=== PATIENT | female | born 1985 | race Caucasian/White ===

== ENCOUNTER → 2018-02-17 | Outpatient (CLI) | payer MEDICAID ==
--- NOTE | 2018-02-17 17:06 | US ---
EXAMINATION TYPE: US transvaginal DATE OF EXAM: 02/17/2018 COMPARISON: CLINICAL HISTORY: N92.0 MENORRHAGIA. Patient states having heavy periods with general cramping. No s urgeries. TECHNIQUE: Transvaginal (TV). Date of LMP: 02/10/2018, EXAM MEASUREMENTS: Uterus: 8.2 x 4.6 x 3.1 cm Endometrial Stripe: 0.2 cm Right Ovary: 4.0 x 2.5 x 1.8 cm Left Ovary: 4.0 x 2.0 x 2.0 cm 1. Uterus: Anteverted wnl 2. Endometrium: wnl 3. Right Ovary: Multiple follicles seen 4. Left Ovary: Multiple follicles seen 5. Bilateral Adnexa: wnl 6. Posterior cul-de-sac: no free fluid Cervix- wnl IMPRESSION: 1. Normal pelvic ultrasound.
== END | disposition home or self-care (01) ==
LOC: RADUSWWP 10:06
PROVIDERS: ATTEND Obstetrics & Gynecology
DX: N92.0 Excessive and frequent menstruation with regular cycle (principal)
CPT/HCPCS: 76830

== ENCOUNTER → 2018-02-27 | Outpatient (CLI) | payer MEDICAID ==
[2018-02-27 12:53] LABS: Basophils # (A) 0.1 k/uL (0-0.2); Basophils % (A) 1 %; Eosinophils # (A) 0.3 k/uL (0-0.7); Eosinophils % (A) 4 %; HCT 40.9 % (34.0-46.0); HGB 13.5 gm/dL (11.4-16.0); Lymphocytes # (A) 1.8 k/uL (1.0-4.8); Lymphocytes % (A) 22 %; MCH 28.8 pg (25.0-35.0); MCV 87.4 fL (80.0-100.0); Mean Platelet Volume 6.4; Monocytes # (A) 0.4 k/uL (0-1.0); Monocytes % (A) 4 %; Neutrophils # (A) 5.6 k/uL (1.3-7.7); Neutrophils % (A) 68 %; Platelet Count 248 k/uL (150-450); RBC 4.68 m/uL (3.80-5.40); RDW 12.6 % (11.5-15.5); WBC 8.3 k/uL (3.8-10.6)
== END | disposition home or self-care (01) ==
LOC: LABPAT 11:18
PROVIDERS: ATTEND Obstetrics & Gynecology
DX: Z01.812 Encounter for preprocedural laboratory examination (principal)
CPT/HCPCS: 36415; 85025

== ENCOUNTER 2018-03-07 05:53 | Day surgery (SDC) | payer MEDICAID ==
[2018-02-28 15:29] VITALS: BMI 21.9
--- NOTE | 2018-03-06 07:29 | P.HPOB ---
History of Present Illness H&P Date: 03/06/18 Chief Complaint: Menorrhagia This is patient is a pleasant 32 yr. old female with persistent, worsening menorrhagia that desires endometrial ablation. Evaluation has included a pelvic ultrasound which was normal. Review of Systems Constitutional: Denies chills, Denies fever Genitourinary: Reports menorrhagia Menstruation: Reports period heavy Past Medical History Past Medical History: No Reported History Additional Past Medical History / Comment(s): HEAVY MENSES History of Any Multi-Drug Resistant Organisms: None Reported Past Surgical History: No Surgical Hx Reported Past Anesthesia/Blood Transfusion Reactions: No Reported Reaction Additional Past Anesthesia/Blood Transfusion Reaction / Comment(s): NO PRIOR SX/ ANESTHESIA HX Past Psychological History: No Psychological Hx Reported Smoking Status: Never smoker Past Alcohol Use History: None Reported Past Drug Use History: None Reported - Past Family History Mother Family Medical History: No Reported History Medications and Allergies Home Medications Medication Instructions Recorded Confirmed Type No Known Home Medications 02/28/18 02/28/18 History Allergies Allergy/AdvReac Type Severity Reaction Status Date / Time No Known Allergies Allergy Verified 02/28/18 15:25 Exam - OBG Physical Exam Abdomen: bowel sounds normal, no diffuse tenderness, no bruit present, no guarding noted, no hepatomegaly, no splenomegaly, no mass Vulva: both: normal Vagina: normal moisture, no discharge Cervix: no lesion, no discharge Uterus: normal size, normal contour Results Transvaginal ultrasound on Feb 17 was normal. Assessment and Plan Assessment: This is a pleasant 33 yr female with long standing menorrhagia who is requesting endometrial ablation for treatment. Plan is hysteroscopy, D&C, and Novasure endometrial ablation. I have discussed this surgery and risks: infection, bleeding, possible uterine perforation and/or thermal injury. All of the patient's questions were answered and a written consent obtained. (1) Menorrhagia Status: Chronic Code(s): N92.0 - EXCESSIVE AND FREQUENT MENSTRUATION WITH REGULAR CYCLE SNOMED Code(s): 721070881
[~2018-03-07 05:53] MED LIST: HYDROmorphone 1 MG/ML 1 ML SYRINGE IVP PRN; LACTATED RINGERS 1,000 ML IV SCH; ONDANSETRON 4 MG/2 ML VIAL IVP ONE; fentaNYL (PF) 50 MCG/ML 2 ML AMP IV PRN
[2018-03-07] MEDS ORDERED: LIDOCAINE 1% 20 ML VIAL (10MG/ML) FOR IV START INTRADERMA ONE (06:33)
[2018-03-07] MEDS ORDERED: KETOROLAC 30 MG/ML 1 ML VIAL ONE (07:22)
[2018-03-07] MEDS ORDERED: ONDANSETRON 4 MG/2 ML VIAL ONE (07:22)
[2018-03-07] MEDS ORDERED: PROPOFOL 10 MG/ML 20 ML VIAL IV ONE (07:22)
[2018-03-07] MEDS ORDERED: DEXAMETHASONE SOD PHOS (MDV) 100 MG/10 ML VIAL ONE (07:22)
[2018-03-07] MEDS ORDERED: MIDAZOLAM 2 MG/2 ML VIAL ONE (07:22)
[2018-03-07] MEDS ORDERED: fentaNYL (PF) 50 MCG/ML 2 ML AMP ONE (07:22)
[2018-03-07] MEDS ORDERED: LIDOCAINE 1% INJ 10MG/ML (20 ML MDV) ONE (07:22)
--- NOTE | 2018-03-07 07:55 | P.OP ---
Date of Procedure: 03/07/18 Preoperative Diagnosis: Menorrhagia Postoperative Diagnosis: Same Procedure(s) Performed: #1: Hysteroscopy. #2: Dilation and curettage. #3: NovaSure endometrial ablation Anesthesia: MAC Surgeon: Thaddeus Frost Estimated Blood Loss (ml): 5 Pathology: other (Uterine curettings) Condition: stable Disposition: PACU Indications for Procedure: Please see dictated H&P for intimate details of this patient's admission. Brief summary this is a pleasant 33-year-old 2 para 2 female with long- standing menorrhagia requesting NovaSure endometrial ablation for treatment. Patient and I have discussed the surgery and risks and risks of infection, bleeding, possible uterine perforation, and/or thermal injury. All the patient' s questions are answered and a written consent is obtained. Operative Findings: This patient had a normal-appearing endometrial cavity Description of Procedure: This patient is taken to the operating room where she is laid in the supine position. She subsequently undergoes general mask anesthesia without incident. An adequate level of anesthesia she's placed in dorsal lithotomy position. Patient has a vaginal perineal prep and drape. Examination under anesthesia shows a mid position uterus of normal size. Weighted speculum was placed in the posterior vagina. Anterior lip of the cervix is then grasped with an Allis clamp and the uterus is then sounded to 8 cm. Gentle dilation of the cervix is then done. I dilated enough to allow the hysteroscope easily and the uterine cavity. Using saline solution hysteroscopy is performed. Endometrial cavity appears normal there is no evidence of any polyps, fibroids, and/or other growths. With this done the hysteroscope was removed. Cervix is dilated more to allow a small curette easily uterine cavity. A gentle but thorough 4 quadrant curettage is then done. With this done the cervix is dilated enough to allow the NovaSure device to be placed in the uterine cavity easily. It is set at a length of 5.5 cm and it opens up to a width of 4.2 cm. It is then seated in place and passes the cavity integrity test. It is then enabled at 127 W setting for 65 seconds. NovaSure device is then removed and appears to be intact. Hysteroscopy is performed again and the uterine cavity appears to be completely ablated up to the endocervix. With this done the procedure is then ended. The Allis clamp and weighted speculum was removed. All counts are correct 3. There are no complications. Patient is awakened from anesthesia and taken to the recovery room in satisfactory condition.
[2018-03-07 08:00] VITALS: TEMP 99.3
[2018-03-07 08:01] VITALS: RESP 16
[2018-03-07 08:40] VITALS: BP 101/70; PULSE 58
== END 2018-03-07 09:04 | disposition home or self-care (01) ==
LOC: OR 05:53
PROVIDERS: ATTEND Obstetrics & Gynecology
DX: N92.0 Excessive and frequent menstruation with regular cycle (principal)
CPT/HCPCS: 81025; 88305; 58563; J2250; J2405; J2001; J3010; J1885; J1100; J2704

== ENCOUNTER → 2023-04-20 | Outpatient (CLI) | payer OTHER ==
--- NOTE | 2023-04-20 11:29 | MM ---
Reason for Exam: Clinical finding. Patient History: Menarche at age 13. First Full-Term at age 26. Premenopausal. Risk Values: Shena 5 year model risk: 0.5%. NCI Lifetime model risk: 11.2%. Tissue Density: The breast tissue is heterogeneously dense. This may lower the sensitivity of mammography. Findings: Analyzed By CAD. No new suspicious masses, calcifications or distortions. Overall Assessment: Incomplete: need additional imaging evaluation, BI-RAD 0 Management: Diagnostic Breast Ultrasound of the right breast. Results were given to the patient verbally at the time of exam. Patient should continue monthly self-breast exams. A clinical breast exam by your physician is recommended on an annual basis. This exam should not preclude additional follow-up of suspicious palpable abnormalities. Note on Shena scores and lifetime risk: 1. A Shena score greater than 3% is considered moderate risk. If this is the case, consider specialist referral to assess eligibility for a risk reducing agent. 2. If overall lifetime risk for the development of breast cancer is 20% or higher, the patient may qualify for future screening with alternating mammogram and breast MRI. Electronically signed and approved by: Stepan Kaet DO
--- NOTE | 2023-04-20 11:30 | USB ---
Reason for Exam: Clinical finding. Patient History: Menarche at age 13. First Full-Term at age 26. Premenopausal. Risk Values: Shena 5 year model risk: 0.5%. NCI Lifetime model risk: 11.2%. Technique: Method: Targeted. Findings: The upper inner quadrant of the right breast, the area of palpable concern of the right breast and the retroareolar of the right breast were scanned. Technique utilized:US breast limited RT Image; Ultrasound imaging of: Area of concern, retroareolar region and axilla. No evidence for organizing fluid collection or mass. Overall Assessment: Benign, BI-RAD 2 Management: Screening Mammogram of both breasts at age 40. There is concern demonstrates dense fibroglandular tissue. No mass identified. A clinical breast exam by your physician is recommended on an annual basis and results should be correlated with mammographic findings. This exam should not preclude additional follow-up of suspicious palpable abnormalities. Results were given to the patient verbally at the time of exam. Electronically signed and approved by: Stepan Kate DO
== END | disposition home or self-care (01) ==
LOC: RADMAMWWP 10:41
PROVIDERS: ATTEND Family Medicine
DX: N63.12 Unspecified lump in the right breast, upper inner quadrant (principal); R92.333 Mammographic heterogeneous density, bilateral breasts
CPT/HCPCS: 77062; 77066

== ENCOUNTER → 2023-04-20 | Outpatient (CLI) | payer OTHER | END | disposition home or self-care (01) | LOC: RADUSWWP 11:40 | PROVIDERS: ATTEND Family Medicine | DX: Z53.9 Procedure and treatment not carried out, unspecified reason (principal) ==